=== PATIENT | male | born 1945 | race Caucasian/White ===

== ENCOUNTER 2016-11-13 08:35 | Day surgery (SDC) | payer MEDICARE, OTHER ==
[~2016-11-13] VITALS: Ht 177.8 cm; Wt 68.2 kg
--- NOTE | 2016-11-13 09:10 | NUR ---
FLEETS ENEMA X 2 GIVEN, TOLERATED WELL, STATES "I THINK I'M PRETTY CLEANED OUT".
[2016-11-13] MEDS ORDERED: LEXAPRO10 MG PO (09:11)
[2016-11-13] MEDS ORDERED: NORVASC10 MG PO (09:11)
[2016-11-13] MEDS ORDERED: ALTACE10 MG PO (09:12)
[2016-11-13] MEDS ORDERED: SOMA350 MG PO (09:12)
[2016-11-13] MEDS ORDERED: ULTRAM50 MG PO (09:13)
[2016-11-13] MEDS ORDERED: LEVOTHYROXINE75 MCG PO (09:14)
[2016-11-13] MEDS ORDERED: PLAQUENIL200 MG PO (09:15)
[2016-11-13] MEDS ORDERED: HYDROCORTISONE30 G9 TOPICAL (09:16)
[2016-11-13] MEDS ORDERED: TEMOVATE 0.05%15 G1 TOPICAL (09:17)
[2016-11-13] MEDS ORDERED: TRIAMCINOLONE A60 M1 TP (09:18)
[2016-11-13 09:33] VITALS: Ht 177.8 cm; Wt 68.2 kg
[2016-11-13 11:46] LABS: BASOPHILS 0.5 % (0.0-2.0); HEMATOCRIT 39.3 % (42.0-54.0); HEMOGLOBIN 13.4 g/dL (13.5-17.5); LYMPHOCYTES 21.5 % (15-50); MCH 33.4 pg (26.0-34.0); MCHC 34.1 g/dL (31.0-37.0); MEAN PLATELET VOLUME 10.9 fL (7.4-10.4); MONOCYTES 16.6 % (2-11); NEUTROPHILS 60.4 % (40-80); PLATELET COUNT 132 10x3/uL (130-400); RBC 4.01 10x6/uL (4.20-6.10); RDW 13.6 % (11.5-14.5)
[2016-11-13 11:50] LABS: CALC OSMOLALITY 285 mosm/kg (275-300); CALCIUM 8.8 mg/dL (8.5-10.1); CARBON DIOXIDE 30.9 mmol/L (21.0-32.0); CHLORIDE - SERUM 108 mmol/L (98-107); CREATININE - SERUM 0.9 mg/dL (0.6-1.3); GLUCOSE 87 mg/dL (74-106); POTASSIUM - SERUM 3.9 mmol/L (3.5-5.1); SODIUM 143 mmol/L (136-145); UREA NITROGEN 18 mg/dL (7-18); eGFR NON AFRICAN AMERICAN 88 mL/min (90-120)
--- NOTE | 2016-11-13 13:22 | NUR ---
[address] STEPHENSON OFFICE AND TALKED TO MACIEL WHO ANSWERED THE PHONE AND SHE STATED TO JUST FAX THE ORDER AND THE OFFICE WILL CONTACT THE PATIENT.
--- NOTE | 2016-11-13 13:32 | NUR ---
1325 BACK FROM FLEX SIG WITH BANDING. RESP EVEN AND NONLABORED. NO BLEEDING. UP TO THE BR AND VOIDED.
--- NOTE | 2016-11-13 13:54 | NUR ---
1345 PASSED AIR AND MOVING SOME.TRAY SERVED.
--- NOTE | 2016-11-13 14:07 | NUR ---
[address] STEPHENSON FOR FOLLOW UP APPOINTMENT AND ORDER RECEIVED.
--- NOTE | 2016-11-13 14:31 | NUR ---
1425 V/S STABLE. IV DCD CATHETER INTACT. WENT OVER DISCHARGE INSTRUCTIONS AND VERBALLY UNDERSTANDS. TOLD NOT TO STRAIN WITH BOWEL MOVEMENTS.
--- NOTE | 2016-11-16 18:09 | HP ---
PATIENT: SHELLI HU MEDICAL RECORD: [id number] ACCOUNT: [id number] LOCATION:[facility] : 43 ADMISSION DATE: 11/13/16 HISTORY AND PHYSICAL EXAMINATION DATE OF SERVICE: 11/13/2016 REFERRING PHYSICIAN: Alex Silverman MD. HISTORY OF PRESENT ILLNESS: The patient is a 71-year-old white male who basically was referred for evaluation of his known internal hemorrhoids for possible banding procedure. I have been seeing this man for years. He had a colonoscopy in June 2014, which revealed 1 small polyp which was removed from the ascending colon and grade III internal hemorrhoids, but otherwise normal. He has had hematochezia for years, but has worsened over the past few months and he is now requesting possible banding. PAST MEDICAL HISTORY: As above, he has history of hypertension, hypothyroidism and reflux disease. PAST SURGICAL HISTORY: Remarkable for an appendectomy and some orthopedic surgeries. ALLERGIES: No known drug allergies. HOME MEDICATIONS: Include Norvasc, Lexapro, Altace, Soma, Ultram, levothyroxine and Plaquenil. FAMILY HISTORY: Negative for GI disease. SOCIAL HISTORY: The patient is a former smoker. Drinks alcohol on social basis. PHYSICAL EXAMINATION: GENERAL: Reveals a well-developed and well-nourished white male, in no acute distress. VITAL SIGNS: Stable, afebrile. CHEST: Clear. HEART: Regular rate and rhythm. ABDOMEN: Soft, nontender. EXTREMITIES: No edema. IMPRESSION: 1. Chronic progressive hematochezia due to known internal hemorrhoids and probable need for hemorrhoidal banding. 2. History of colon polyps, not due for surveillance colonoscopy until 2019. 3. History of rheumatoid arthritis, hypertension and thyroid disease. PLAN: Flexible sigmoidoscopy with probable hemorrhoidal banding. TRANSINT:[id number] Voice Confirmation ID: [id number] DOCUMENT ID: [id number] HISTORY AND PHYSICAL [id number] SHELLI HU JOHN MD at 1809 CC: ALEX SILVERMAN MD [id number] DICTATION DATE: 11/13/16 1247 STEEL MELTER: 11/13/16 1438 [facility] 11/13/16 [place] [address]
--- NOTE | 2016-11-16 18:09 | PRO ---
PATIENT:SHELLI HU MEDICAL RECORD: [id number] : 43 LOCATION:[facility] ADMISSION DATE: 11/13/16 PROCEDURE PERFORMED BY: AGNES HOFFMAN MD DATE OF PROCEDURE: 11/13/2016 HUMAN RESOURCE ADVISOR: Agnes Hoffman M.D. PROCEDURE: Flexible sigmoidoscopy with hemorrhoidal banding times 5. INDICATION: The patient is a 71-year-old white male with known grade III internal hemorrhoids with some prolapse per colonoscopy in 2013, who basically is now for sigmoidoscopy with banding in light of his prolapse and hematochezia. PREMEDICATION: Taper anesthesia. INSTRUMENT: Nativo video gastroscope. FINDINGS: Rectal exam revealed obvious prolapse from internal hemorrhoids. They were barely reducible. The endoscope was then passed through the rectum and to the mid sigmoid colon without difficulty. The exam was normal other than his internal hemorrhoids. I therefore placed a 6 shooter type photography supervisor on the tip of the scope and inserted back into the patient. On retroflexed view, I placed 5 bands in a circumferential manner just proximal to the dentate line without difficulty. The patient tolerated the procedure well without any complications. IMPRESSION: 1. Moderate sized grade III internal hemorrhoids with prolapse now status post hemorrhoidal banding times 5. 2. Otherwise, normal sigmoidoscopy. RECOMMENDATIONS: 1. Avoid straining with bowel movement. 2. Follow up in clinic in about a month. Depending on his symptoms, could consider repeat hemorrhoidal banding, surgical referral for hemorrhoid stapling, etc. TRANSINT:[id number] Voice Confirmation ID: [id number] DOCUMENT ID: [id number] AGNES HOFFMAN MD at 1809 CC: ALEX SILVERMAN MD [id number] DICTATION DATE: 11/13/16 1305 DIRECTOR INSTRUCTIONAL MATERIAL: 11/14/16 0653 [facility] 11/13/[address] [id number]
== END 2016-11-13 14:35 | disposition home or self-care (01) ==
LOC: D.ENDO 08:35
PROVIDERS: Anesthesiology
DX: K64.2 Third degree hemorrhoids (principal); K92.1 Melena; F17.200 Nicotine dependence, unspecified, uncomplicated; I10 Essential (primary) hypertension; M06.9 Rheumatoid arthritis, unspecified

== ENCOUNTER → 2018-08-09 09:29 | Outpatient (CLI) | payer MEDICARE, OTHER ==
[2016-11-13 09:33] VITALS: BMI 21.5
[~2018-08-09 09:29] MED LIST: ALTACE10 MG PO; HYDROCORTISONE30 G9 TOPICAL; LEVOTHYROXINE75 MCG PO; LEXAPRO10 MG PO; NORVASC10 MG PO; PLAQUENIL200 MG PO; SOMA350 MG PO; TEMOVATE 0.05%15 G1 TOPICAL; TRIAMCINOLONE A60 M1 TP; ULTRAM50 MG PO
== END | disposition home or self-care (01) ==
LOC: D.MRI 09:29
DX: M53.3 Sacrococcygeal disorders, not elsewhere classified (principal)

== ENCOUNTER → 2020-12-17 12:04 | Outpatient (CLI) | payer MEDICARE, OTHER ==
[2016-11-13 09:33] VITALS: BMI 21.5
== END | disposition home or self-care (01) ==
LOC: D.MRI 12:04
PROVIDERS: ATTEND Psychiatry & Neurology Neurology
DX: R41.3 Other amnesia (principal)